=== PATIENT | female | born 1975 | race Caucasian/White ===

== ENCOUNTER 2017-07-12 00:07 | Emergency (ER) | payer BC ==
[~2017-07-12] VITALS: Ht 160 cm; Wt 76.2 kg
[2017-07-12 00:11] VITALS: BP 133/72; Ht 160 cm; Wt 76.2 kg
== END 2017-07-12 02:06 | disposition home or self-care (01) ==
LOC: ED 00:07
DX: S93.601A Unspecified sprain of right foot, initial encounter (principal); X50.1XXA Overexertion from prolonged static or awkward postures, initial encounter; Y93.89 Activity, other specified; Y92.480 Sidewalk as the place of occurrence of the external cause; Y99.8 Other external cause status